=== PATIENT | male | born 1975 | race Caucasian/White ===

== ENCOUNTER 2017-11-29 09:26 | Outpatient (CLI) | payer BC, OTHER ==
[2017-11-29 10:26] LABS: BASOPHILS # (AUTO) 0.1 K/uL (0.0-8.0); BASOPHILS % (AUTO) 0.9 % (0.0-2.0); EOSINOPHILS # (AUTO) 1.4 K/uL (0.0-0.7); EOSINOPHILS % (AUTO) 15.5 % (0.0-7.0); HEMATOCRIT 41.5 % (36.7-47.1); HEMOGLOBIN 14.2 g/dL (12.5-16.3); LYMPHOCYTES % (AUTO) 33.5 % (20.5-51.5); MEAN CORPUSCULAR HEMOGLOBIN 29.3 uug (23.8-33.4); MEAN CORPUSCULAR HGB CONC 34 g/dL (32.5-36.3); MEAN CORPUSCULAR VOLUME 85.2 fL (73.0-96.2); MONOCYTES # (AUTO) 1.1 K/uL (2.0-10.0); MONOCYTES % (AUTO) 12.5 % (0.0-11.0); NEUTROPHILS # (AUTO) 3.3 K/uL (1.8-8.9); NEUTROPHILS % (AUTO) 37.6 % (38.5-71.5); PLATELET COUNT (AUTO) 282 K/uL (152-348); RED BLOOD CELL COUNT(AUTO) 4.87 MIL/uL (4.06-5.63); WHITE BLOOD COUNT (AUTO) 8.8 K/uL (3.6-10.2)
[2017-11-29 10:38] LABS: BILIRUBIN,TOTAL 0.4 mg/dL (0.2-1.0); CREATININE 1.1 mg/dL (0.6-1.3); POTASSIUM 4.4 mmol/L (3.5-5.1); TOTAL PROTEIN, SERUM 8.4 g/dL (6.4-8.2)
[2017-11-29 11:00] LABS: *BILIRUBIN,URIN NEGATIVE (NEGATIVE); *BLOOD, URINE Trace-intact (NEGATIVE); *CLARITY,URINE CLEAR (CLEAR); *COLOR,URINE YELLOW (YELLOW); *KETONES,URINE NEGATIVE (NEGATIVE); *PROTEIN,URINE NEGATIVE (NEGATIVE); *UROBILINOGEN,URINE 0.2 E.U./dl (NORMAL); LEUKOCYTE ESTERASE ,URINE NEGATIVE (NEGATIVE); NITRITE, URINE NEGATIVE (NEGATIVE); PH,URINE 5.5 (5.0-8.0); UGLUCOSE NEGATIVE (NEGATIVE)
[2017-11-29 11:16] LABS: THYROID STIMULATING HORMONE 1.114 mIU/mL (0.358-3.740)
[2017-11-29 11:37] LABS: BACTERIA,URINE NONE SEEN /HPF (NONE SEEN); RBC,URINE NONE SEEN /HPF (0-3); SQUAMOUS EPITHELIAL CELL,UR NONE SEEN /HPF (NONE SEEN); WBC,URINE 0-3 /HPF (0-3)
== END 2017-11-29 23:59 | disposition home or self-care (01) ==
LOC: LAB 09:26
PROVIDERS: ATTEND Internal Medicine
DX: R06.02 Shortness of breath (principal)
CPT/HCPCS: 36415; 71046; 84153; 84443; 84481; 85025

== ENCOUNTER → 2017-12-01 | Outpatient (CLI) | payer BC, OTHER | END | disposition home or self-care (01) | LOC: RAD 12:16 | DX: M41.86 Other forms of scoliosis, lumbar region (principal); M25.572 Pain in left ankle and joints of left foot | CPT/HCPCS: 72110; 73610 ==

== ENCOUNTER 2022-08-11 19:52 | Emergency (ER) | payer BC, OTHER ==
[~2022-08-11] VITALS: Ht 175.3 cm; Wt 99.8 kg
[2022-08-11] MEDS ORDERED: ONDANSETRON ODT 4 MG TAB.RAPDIS ONE (21:38)
[2022-08-11] MEDS ORDERED: CYCLOBENZAPRINE HCL 10 MG TABLET ONE (21:39)
[2022-08-11] MEDS ORDERED: OXYCODONE/APAP 5-325 MG TABLET ONE (21:39)
[2022-08-11] MEDS ORDERED: HYDR-4209 PO (21:39)
[2022-08-11] MEDS ORDERED: CYCL10TA9 PO (21:39)
[2022-08-11] MEDS: ONDANSETRON ODT 4 MG TAB.RAPDIS SL ONE (21:44)
[2022-08-11] MEDS: OXYCODONE/APAP 5-325 MG TABLET PO ONE (21:45)
[2022-08-11] MEDS: CYCLOBENZAPRINE HCL 10 MG TABLET PO ONE (21:45)
== END 2022-08-11 21:58 | disposition home or self-care (01) ==
LOC: ER 19:57
DX: G89.29 Other chronic pain (principal); M54.50 Low back pain, unspecified
CPT/HCPCS: A4663; Q0162